=== PATIENT | female | born 1995 | race Caucasian/White ===

== ENCOUNTER → 2023-08-30 | Outpatient (CLI) | payer BC | END | disposition home or self-care (01) | LOC: LABWHC1 08:35 | PROVIDERS: ATTEND Family Medicine | DX: Z33.1 Pregnant state, incidental (principal) | CPT/HCPCS: 36415; 84702 ==

== ENCOUNTER 2023-12-10 17:04 | Emergency (ER) | payer OTHER, BC ==
--- NOTE | 2023-12-10 17:39 | ED ---
General Adult HPI - General Chief complaint: Fall Stated complaint: Fall while - 19 weeks Time Seen by Provider: 12/10/23 17:11 Source: patient, RN notes reviewed Mode of arrival: ambulatory Limitations: no limitations - History of Present Illness Initial comments: 28-year-old G4, P1 female presents to the emergency department for evaluation of fall. Patient is 19 weeks . She follows with Dr. Scales. Patient states that she slipped on ice today. She states that she fell on her bottom. She denies any other injury. Denies blood thinners. She states that she has been ambulating well. She denies vaginal bleeding, cramping. She has an appointment with her OB next week. - Related Data Allergies Allergy/AdvReac Type Severity Reaction Status Date / Time No Known Allergies Allergy Verified 12/10/23 17:10 Review of Systems ROS Statement: Those systems with pertinent positive or pertinent negative responses have been documented in the HPI. ROS Other: All systems not noted in ROS Statement are negative. Past Medical History Past Medical History: No Reported History Past Surgical History: Section Smoking Status: Never smoker General Exam Limitations: no limitations General appearance: alert, in no apparent distress Head exam: Present: atraumatic, normocephalic, normal inspection Eye exam: Present: normal appearance, PERRL, EOMI. Absent: scleral icterus, conjunctival injection, periorbital swelling ENT exam: Present: normal exam, mucous membranes moist Neck exam: Present: normal inspection, full ROM. Absent: tenderness, meningismus, lymphadenopathy Respiratory exam: Present: normal lung sounds bilaterally. Absent: respiratory distress, wheezes, rales, rhonchi, stridor Cardiovascular Exam: Present: regular rate, normal rhythm, normal heart sounds. Absent: systolic murmur, diastolic murmur, rubs, gallop, clicks GI/Abdominal exam: Present: soft, normal bowel sounds, other (Fundus palpable just below the umbilicus) Extremities exam: Present: normal inspection, full ROM, normal capillary refill. Absent: tenderness, pedal edema, joint swelling, calf tenderness Back exam: Present: normal inspection Neurological exam: Present: alert, oriented X3 Psychiatric exam: Present: normal affect, normal mood Skin exam: Present: warm, dry, intact, normal color. Absent: rash Course Vital Signs 12/10/23 12/10/23 17:07 18:49 Temperature 98.3 F 98.3 F Pulse Rate 104 H 99 Respiratory 20 18 Rate Blood Pressure 110/60 110/82 O2 Sat by Pulse 98 99 Oximetry Medical Decision Making - Medical Decision Making Was pt. sent in by a medical professional or institution (FAUSTO Medina, TECHNICAL COMMUNICATOR, urgent care, hospital, or fci...) When possible be specific @ -No Did you speak to anyone other than the patient for history (EMS, parent, family, police, friend...)? What history was obtained from this source @ -No Did you review nursing and triage notes (agree or disagree)? Why? @ -I reviewed and agree with nursing and triage notes Were old charts reviewed (outside hosp., previous admission, EMS record, old EKG, old radiological studies, urgent care reports/EKG's, fci records)? Report findings @ -No old charts were reviewed Differential Diagnosis (chest pain, altered mental status, abdominal pain women, abdominal pain men, vaginal bleeding, weakness, fever, dyspnea, syncope, headache, dizziness, GI bleed, back pain, seizure, CVA, palpatations, mental health, musculoskeletal)? @ -Not applicable EKG interpreted by me (3pts min.). @ -None X-rays interpreted by me (1pt min.). @ -None done CT interpreted by me (1pt min.). @ -None done U/S interpreted by me (1pt. min.). @ -None done What testing was considered but not performed or refused? (CT, X-rays, U/S, labs)? Why? @ -None What meds were considered but not given or refused? Why? @ -None Did you discuss the management of the patient with other professionals (professionals i.e. FAUSTO Medina, TECHNICAL COMMUNICATOR, lab, RT, psych nurse, drug abuse social worker, military lawyer, teacher, sales and service officer, case management associate)? Give summary @ -No Was smoking cessation discussed for >3mins.? @ -No Was critical care preformed (if so, how long)? @ -No Were there social determinants of health that impacted care today? How? (Homelessness, low income, unemployed, alcoholism, drug addiction, transportation, low edu. Level, literacy, decrease access to med. care, [facility], rehab)? @ -No Was there de-escalation of care discussed even if they declined (Discuss DNR or withdrawal of care, Hospice)? DNR status @ -No What co-morbidities impacted this encounter? (DM, HTN, Smoking, COPD, CAD, Cancer, CVA, ARF, Chemo, Hep., AIDS, mental health diagnosis, sleep apnea, morbid obesity)? @ -None Was patient admitted / discharged? Hospital course, mention meds given and route, prescriptions, significant lab abnormalities, going to OR and other pertinent info. @ -Discharged. patient presented to the emergency department for evaluation of fall. Patient is 19 weeks and is concerned about the baby. She reports some buttock pain as she fell on it but is able to ambulate and does not report any significant pain. She denies vaginal bleeding, cramping. heart tones were auscultated by labor and delivery nurse with rate of 160, movement detected. Advised patient to follow-up with her OB as scheduled next week. Strict return precautions discussed including development of vaginal bleeding or cramping. Patient understanding agree with plan. Patient stable at time of discharge. Case discussed with Dr. Allen. Undiagnosed new problem with uncertain prognosis? @ -No Drug Therapy requiring intensive monitoring for toxicity (Heparin, Nitro, Insulin, Cardizem)? @ -No Were any procedures done? @ -No Diagnosis/symptom? @ -Fall during Acute, or Chronic, or Acute on Chronic? @ -Acute Uncomplicated (without systemic symptoms) or Complicated (systemic symptoms)? @ -Uncomplicated Side effects of treatment? @ -No Exacerbation, Progression, or Severe Exacerbation? @ -No Poses a threat to life or bodily function? How? (Chest pain, [place], [place], pneumonia, PE, COPD, DKA, ARF, appy, cholecystitis, CVA, Diverticulitis, Homicidal, Suicidal, threat to staff... and all critical care pts) @ -No Disposition Clinical Impression: Fall, 19 weeks gestation of Disposition: HOME SELF-CARE Condition: Stable Instructions (If sedation given, give patient instructions): Fall Prevention (ED) Additional Instructions: Please follow up with Dr. Scales as scheduled. Return to the emergency department for new or worsening symptoms as discussed. Is patient prescribed a controlled substance at d/c from ED?: No Referrals: Marquis Rodriguez MD [Primary Care Provider] - 1-2 days
[2023-12-10 18:01] VITALS: TEMP 98.3
[2023-12-10 18:53] VITALS: BP 110/82; PULSE 99; RESP 18
== END 2023-12-10 18:50 | disposition home or self-care (01) ==
LOC: EC 17:04
DX: Z04.3 Encounter for examination and observation following other accident (principal)
CPT/HCPCS: 99283

== ENCOUNTER 2024-04-24 03:38 | Inpatient (IN) | payer BC, OTHER ==
[2024-04-24 04:02] LABS: Glucose,Whole Blood 99 mg/dL (70-110)
[2024-04-24] MEDS ORDERED: OXYTOCIN 10 UNIT/ML 1 ML VIAL IM PRN (04:02)
[2024-04-24] MEDS ORDERED: miSOPROStoL 200 MCG TAB PO PRN (04:02)
[2024-04-24] MEDS ORDERED: TRANEXAMIC 1,000 MG/100ML-NACL 1,000 MG in EMPTY BAG 1 BAG IV PRN (04:02)
[2024-04-24] MEDS ORDERED: CARBOPROST TROMETHAMINE 250 MCG/ML 1 ML AMP IM PRN (04:02)
[2024-04-24] MEDS ORDERED: METHYLERGONOVINE 0.2 MG/ML 1 ML AMP IM PRN (04:02)
[2024-04-24 04:12] LABS: Basophils # (A) 0.1 k/uL (0-0.2); Basophils % (A) 1 %; Eosinophils # (A) 0.2 k/uL (0-0.7); Eosinophils % (A) 2 %; HCT 42.1 % (34.0-46.0); HGB 13.5 gm/dL (11.4-16.0); Lymphocytes # (A) 2.8 k/uL (1.0-4.8); Lymphocytes % (A) 29 %; MCH 28.1 pg (25.0-35.0); MCHC 32.1 g/dL (31.0-37.0); MCV 87.4 fL (80.0-100.0); Mean Platelet Volume 8.9; Monocytes # (A) 0.6 k/uL (0-1.0); Monocytes % (A) 6 %; Neutrophils # (A) 5.7 k/uL (1.3-7.7); Neutrophils % (A) 59 %; Platelet Count 252 k/uL (150-450); RBC 4.81 m/uL (3.80-5.40); WBC 9.6 k/uL (3.8-10.6)
[2024-04-24] MEDS: CITRIC ACID-SODIUM CITRATE 15 ML CUP PO ONE (04:33)
[2024-04-24] MEDS: LACTATED RINGERS 1,000 ML BAG IV STA (04:36)
[2024-04-24] MEDS ORDERED: ONDANSETRON 4 MG/2 ML VIAL ONE (05:28)
[2024-04-24] MEDS ORDERED: fentaNYL (PF) 50 MCG/ML 2 ML AMP ONE (05:28)
[2024-04-24] MEDS ORDERED: PROPOFOL 10 MG/ML 20 ML VIAL IV ONE (05:28)
[2024-04-24] MEDS ORDERED: KETOROLAC 15 MG/ML 1 ML VIAL ONE (05:28)
[2024-04-24] MEDS ORDERED: DEXAMETHASONE SOD PHOSPHATE 4 MG/ML 1 ML VIAL ONE (05:28)
[2024-04-24] MEDS ORDERED: MORPHINE SULFATE (PF) 0.3 MG/0.3 ML SYR ONE (05:28)
[2024-04-24] MEDS ORDERED: SUCCINYLCHOLINE CHLORIDE 200 MG/10 ML VIAL IV ONE (05:28)
[2024-04-24] MEDS ORDERED: OXYTOCIN 30 UNITS/500 ML NS BAG IV ONE (05:28)
--- NOTE | 2024-04-24 06:39 | P.HPOB ---
History of Present Illness H&P Date: 04/24/24 Chief Complaint: Leaking of fluid Ms. Paredes is a 28 year old at 38 weeks and 2 days with EDC of 05/06/2024 by a 6 week US who presents to L&D with grossly ruptured membranes and in labor. She has a history of one prior section and was scheduled for a repeat with bilateral salpingectomy this coming . Her has been complicated by gestational diabetes on Metformin. The fetus is estimated in the 78%ile based on a 32 week growth ultrasound. Obstetric history: 1 full-term work-up: blood type O positive, antibody negative, rubella immune, VDRL non-reactive, HBsAg negative, HIV negative, HCV Ab negative, gonorrhea negative, chlamydia negative, 1 hour GTT 213, GBS negative Past Medical History Past Medical History: No Reported History History of Any Multi-Drug Resistant Organisms: None Reported Past Surgical History: Section Past Anesthesia/Blood Transfusion Reactions: No Reported Reaction Past Psychological History: No Psychological Hx Reported Smoking Status: Never smoker Past Drug Use History: None Reported Medications and Allergies Home Medications Medication Instructions Recorded Confirmed Type Aspirin [Adult Low Dose Aspirin EC] 81 mg PO 04/24/24 History Vit No.179/Iron/Folic 1 each PO 04/24/24 History [ Tablet] metFORMIN HCL 500 mg PO 04/24/24 History Allergies Allergy/AdvReac Type Severity Reaction Status Date / Time No Known Allergies Allergy Verified 04/24/24 03:40 Exam Vital Signs Temp Pulse Resp BP Pulse Ox 04/24/24 03:51 96.4 F L 77 16 123/72 100 04/24/24 03:39 96.4 F L 77 16 123/72 100 Intake and Output 04/23/24 04/23/24 04/24/24 14:59 22:59 06:59 Other: Weight 87.997 kg Focused physical exam is performed. This is a healthy-appearing in no apparent distress. Breathing is non-labored. Abdomen is gravid and non-tender. Extremities non-tender and non-edematous. heart tones are Category I and tocometer is graphing contractions every 4 minutes. Results Result Diagrams: 04/24/24 04:02 Assessment and Plan Assessment: 28 year old at 38 weeks and 2 days scheduled for repeat who presents with SROM Plan: Admit, NPO, initiate protocol Time with Patient: Less than 30
[2024-04-24] MEDS ORDERED: METOCLOPRAMIDE 5 MG/ML 2 ML VIAL IVP PRN (06:45)
[2024-04-24] MEDS ORDERED: NALOXONE 0.4 MG/ML 1 ML VIAL IV PRN (06:45)
[2024-04-24] MEDS ORDERED: diphenhydrAMINE 25 MG CAP PO PRN (06:45)
[2024-04-24] MEDS ORDERED: diphenhydrAMINE 50 MG CAP PO PRN (06:45)
[2024-04-24] MEDS ORDERED: ONDANSETRON 4 MG/2 ML VIAL IVP PRN (06:45)
[2024-04-24] MEDS ORDERED: ZOLPIDEM 5 MG TAB PO PRN (06:45)
[2024-04-24] MEDS ORDERED: diphenhydrAMINE 50 MG/ML 1 ML VIAL IVP PRN ×2 (06:45)
--- NOTE | 2024-04-24 06:45 | P.OP ---
Date of Procedure: 04/24/24 Preoperative Diagnosis: 1. Term IUP at 38 weeks and 2 days 2. History of prior c-esction 3. No desire for TOLAC 4. SROM Postoperative Diagnosis: Same Procedure(s) Performed: Repeat Lower Transverse Section with Bilateral Salpingectomy Implants: None Anesthesia: OLEKSANDR Surgeon: Enedina Euceda Basket Turner #1: Jana Gerard Estimated Blood Loss (ml): 610 Urine output (ml): 500 (clear yellow) Pathology: none sent Condition: stable Disposition: floor Indications for Procedure: Ms. Paredes is a 28 year old at 38 weeks and 2 days gestation who is scheduled for a repeat next week and presents with SROM. The risks, benefits, and alternatives to section were discussed with the patient including risk of bleeding, infection, damage to surrounding structures inc luding bladder/bowels/ureters, and post-operative VTE. The patient understands these risks and desires to proceed with section. Operative Findings: Mild adhesive disease in the pelvis. Colorless amniotic fluid. Viable male in cephalic presentation. Apgars 6/10. Weight 7 pounds, 7 ounces (3370 grams). Normal uterus, tubes, and ovaries. Description of Procedure: The patient was taken back to the operating room where spinal anesthesia was found to be inadequate. The patient was then placed under general anesthesia. Two grams of Ancef were given for infection prophylaxis. She was prepared and draped in the dorsal supine position with a leftward tilt. A Pfannenstiel skin incision was made with the scalpel. The incision was carried down to the fascia with a bovie. The fascia was incised and extended laterally with Jc scissors. The superior aspect of the fascia was grasped with the Garima clamps. The underlying rectus muscle was dissected off sharply with Jc scissors. In a similar fashion, the inferior aspect of the fascia was elevated with Garima clamps and the rectus muscle and pyramidalis were dissected off. Excellent hemostasis was achieved with the bovie. The rectus muscle was in the midline down to the level of the pubic symphysis. Pre-peritoneal fatty tissue was bluntly dissected to expose the peritoneum. The peritoneum was found to be free of adherent bowel and entered sharply with Jc scissors. The peritoneal incision was extended superiorly and inferiorly to the bladder reflection with good visualization of the bladder. The bladder blade was inserted and vesicouterine peritoneum was identified. Intraabdominal survey revealed scant, clear peritoneal fluid and the thinned-out lower uterine segment. The vesicouterine peritoneum was opened with scissors and the bladder flap was developed. The bladder blade was repositioned to keep the bladder out of the operative field. The lower uterine segment was incised with a scalpel. The amniotic sac was ruptured with an Allis clamp and clear fluid was noted. The uterine incision was extended bluntly with lateral and upward traction. The fetu s was in cephalic presentation. The head was elevated out of the pelvis with special attention paid to avoid using the uterine incision as a fulcrum. Gentle fundal pressure was applied once the head was brought into the incision. The infant was delivered with no difficulty and was noted to be crying spontaneously. The mouth and nose were suctioned with a bulb. The cord was clamped and cut. The was handed off to the investigative writer. IV oxytocin was initiated to facilitate uterine contractions. The placenta was delivered intact with manual massage of uterine fundus. The uterus was then exteriorized and the inside of the uterus was gently wiped with a lap sponge to assure complete removal of placental membranes. The uterine incision was closed with 0-Vicryl suture in a running locked fashion. A second imbricating layer was placed with 0-Vicryl. The ovaries and tubes were found to be normal. The fimbriated end of the right fallopian tube was then grasped, cauterized, and cut sequentially to the level of the uterine cornua using the Ligasure device. This process was repeated on the left side. The uterus and ovaries were then gently returned to the abdominal cavity. The abdomen was copiously suction irrigated. The uterine incision was reinspected and excellent hemostasis was noted. The fascial layer was closed with a 0-Vicryl suture. The subcutaneous tissue was reapproximated with 2-0 Plain Gut. The skin was closed with almita.The patient tolerated the procedure well. All the counts were correct times two. The patient was taken to the recovery room in a stable condition. A physician manager surgical was utilized for the entire procedure due to the need for tissue retraction, dissection of vital structures, prevention and management of blood loss, and reduction in overall operative and anesthesia time as is the standard of care.
[2024-04-24] MEDS: LACTATED RINGERS 1,000 ML IV SCH (07:01)
[2024-04-24] MEDS: SENNOSIDES-DOCUSATE SODIUM 1 EACH TAB PO SCH (08:18)
[2024-04-24] MEDS: ACETAMINOPHEN TAB 500 MG TAB PO SCH (08:22)
[2024-04-24] MEDS: KETOROLAC 15 MG/ML 1 ML VIAL IVP SCH (12:25)
[2024-04-24] MEDS: IBUPROFEN 600 MG TAB PO SCH (12:26)
[2024-04-25] MEDS: SIMETHICONE 80 MG CHEWABLE PO PRN (00:24)
[2024-04-25 05:35] LABS: Basophils % (A) 0 %; Eosinophils # (A) 0.1 k/uL (0-0.7); Eosinophils % (A) 1 %; HGB 11.1 gm/dL (11.4-16.0); Lymphocytes # (A) 2.5 k/uL (1.0-4.8); Lymphocytes % (A) 28 %; MCH 28.8 pg (25.0-35.0); MCHC 32.5 g/dL (31.0-37.0); MCV 88.7 fL (80.0-100.0); Mean Platelet Volume 9.2; Monocytes # (A) 0.5 k/uL (0-1.0); Monocytes % (A) 5 %; Neutrophils # (A) 5.9 k/uL (1.3-7.7); Neutrophils % (A) 65 %; Platelet Count 192 k/uL (150-450); RBC 3.84 m/uL (3.80-5.40); WBC 9.2 k/uL (3.8-10.6)
--- NOTE | 2024-04-25 07:46 | P.PN ---
Progress Note - Text Progress Note Date: 04/25/24 Patient doing well. Ambulating w/o paresthesia or weakness. Denies headache. Mild pruritis over abdomen. Pain controlled. A/P POD#1 s/p w/ spinal duramorph - doing well
--- NOTE | 2024-04-25 09:32 | P.PNOBGPC ---
Subjective - Subjective Principal diagnosis: s/p repeat Interval history: The patient is doing well this morning and had no acute events overnight. She has no complaints this morning. She reports minimal lochia, passing flatus, voiding without difficulty, ambulating, and eating/drinking without nausea or vomiting. She is formula-feeding her without difficulty. She denies chest pain, shortness of breathing, fevers, or chills overnight. She denies pain or swelling in the legs. Patient reports: Reports appetite normal, Reports voiding normally, Reports pain well controlled, Reports ambulating normally [place]: doing well Objective - Vital Signs Latest vital signs: Vital Signs Temp Pulse Resp BP Pulse Ox 04/25/24 08:00 98.1 F 78 16 112/78 98 04/25/24 04:00 98.2 F 78 16 98/59 97 04/25/24 00:00 98.1 F 77 15 94/60 97 04/24/24 19:45 98.1 F 81 19 105/71 97 04/24/24 16:28 98.0 F 75 16 104/65 97 04/24/24 12:00 97.7 F 89 16 100/65 96 Intake and Output 04/24/24 04/25/24 04/25/24 22:59 06:59 14:59 Intake Total 1220 Output Total 1600 Balance -380 Intake: IV 500 Oral 720 Output: Urine 1600 Other: Voiding Method Toilet Toilet # Voids 2 1 2 - Exam Extremities: Present: normal Abdomen: Present: normal appearance, soft Incision: Present: normal, dry, intact, other (almita in place) Uterus: Present: normal, firm - Labs Labs: Abnormal Lab Results - Last 24 Hours (Table) 04/25/24 Range/Units 05:21 Hgb 11.1 L (11.4-16.0) gm/dL Assessment and Plan Assessment: 28 year old now POD#1 s/p repeat section at 38 weeks 2/ SROM Plan: 1. postoperative. patient meeting all postoperative milestones appropriately. continue to monitor. 2. viable male infant. doing well, will plan for circumcision tomorrow. Dispo: Anticipate discharge home tomorrow.
[2024-04-26 08:24] VITALS: BP 117/75; PULSE 90; RESP 16; TEMP 98.1
--- NOTE | 2024-04-26 11:45 | P.DS ---
Providers Date of admission: 04/24/24 03:49 Expected date of discharge: 04/26/24 Attending physician: Yue Scales Primary care physician: Stated None - Discharge Diagnosis(es) (1) Term Current Visit: Yes Status: Acute (2) SROM (spontaneous rupture of membranes) Current Visit: Yes Status: Acute (3) H/O section Current Visit: Yes Status: Acute (4) S/P section Current Visit: Yes Status: Acute Hospital Course: This is a 28 yo that presented to labor and delivery on 04/24 with complaints of SROM that am. She is has a history of a section and desires repeat. she is done with childbearing and desires bilateral salpingecotmy. She did have routine care complicated by a diagnosis of GDM controlled with po metformin. For full details on this patient, please see her dictated history and physical. She was admitted to labor and delivery and taken back to the OR for RCS, and bilateral salpingectomy. For full details see the dicated operative report. She delivered a viable female infant 7-7. Her post care has been uncomplicated and on this post operative day number 2 she is feeling well. She is ambulating and voiding without difficulty, lochia is minimal, she is bottlefeeding. she is requesting discharge home this afternoon. Patient Condition at Discharge: Good Plan - Discharge Summary New Discharge Prescriptions: No Action Vit No.179/Iron/Folic [ Tablet] 1 each PO metFORMIN HCL 500 mg PO Aspirin [Adult Low Dose Aspirin EC] 81 mg PO Discharge Medication List Aspirin [Adult Low Dose Aspirin EC] 81 mg PO 04/24/24 [History] Vit No.179/Iron/Folic [ Tablet] 1 each PO 04/24/24 [History] metFORMIN HCL 500 mg PO 04/24/24 [History] Follow up Appointment(s)/Referral(s): Yue Scales DO [Doctor of Osteopathic Medicine] - 2 Weeks Patient Instructions/Handouts: (DC), (GEN) Activity/Diet/Wound Care/Special Instructions: no tub baths or intercourse until 6 weeks post , OTC motrin/ibuprofen 600mg or 3 tabs every 6 hours as needed for pain. breastmilk may come in, in the next few day slight low grade fever may be noted with engorgement. FU appointment in 2 weeks for routine PO check, should she have concerns prior to this appointment she is to call the office. Discharge Disposition: HOME SELF-CARE
== END 2024-04-26 15:30 | disposition home or self-care (01) | DRG 785 ==
LOC: FBPOP 03:38 → 4FBP 03:49
PROVIDERS: ADMIT Obstetrics & Gynecology; ATTEND Obstetrics & Gynecology Obstetrics
PROC: 0UT70ZZ Resection of Bilateral Fallopian Tubes, Open Approach (ICD-10-PCS; 2024-04-24)
PROC: 10D00Z1 Extraction of Products of Conception, Low, Open Approach (ICD-10-PCS; principal; 2024-04-24 05:00)
DX: O34.211 Maternal care for low transverse scar from previous cesarean delivery (principal); O24.425 Gestational diabetes mellitus in childbirth, controlled by oral hypoglycemic drugs; O42.92 Full-term premature rupture of membranes, unspecified as to length of time between rupture and onset of labor; O90.9 Complication of the puerperium, unspecified; L29.9 Pruritus, unspecified; Z37.0 Single live birth; Z3A.38 38 weeks gestation of pregnancy; Z79.82 Long term (current) use of aspirin; Z30.2 Encounter for sterilization
CPT/HCPCS: 59025; 84112; 85025; 86850; 86900; 86901; 88302; 99213

== ENCOUNTER 2024-10-10 06:42 | Emergency (ER) | payer BC, OTHER ==
[2024-10-10 06:51] VITALS: RESP 18
--- NOTE | 2024-10-10 07:27 | ED ---
General Adult HPI - General Chief complaint: ENT Stated complaint: Earache Time Seen by Provider: 10/10/24 07:01 Source: patient, RN notes reviewed Mode of arrival: ambulatory Limitations: no limitations - History of Present Illness Initial comments: Patient is a 28-year-old female presenting to the emergency department with concern for left ear ache. Patient has had upper respiratory symptoms and congestion for a couple weeks. Patient has had some mild left ear fullness. Discomfort started becoming severe around 1 AM. Patient still has discomfort. Patient also has mild congestion and mild cough however those are getting better. No fever. - Related Data Home Medications Medication Instructions Recorded Confirmed Aspirin [Adult Low Dose Aspirin EC] 81 mg PO 04/24/24 Vit No.179/Iron/Folic 1 each PO 04/24/24 [ Tablet] metFORMIN HCL 500 mg PO 04/24/24 Previous Rx's Medication Instructions Recorded Amoxicillin 500 mg PO Q8H #30 capsule 10/10/24 Allergies Allergy/AdvReac Type Severity Reaction Status Date / Time No Known Allergies Allergy Verified 10/10/24 06:51 Review of Systems ROS Statement: Those systems with pertinent positive or pertinent negative responses have been documented in the HPI. ROS Other: All systems not noted in ROS Statement are negative. Constitutional: Denies: fever ENT: Reports: ear pain, congestion Respiratory: Reports: as per HPI, cough Cardiovascular: Denies: chest pain Endocrine: Denies: fatigue Gastrointestinal: Denies: abdominal pain Past Medical History Past Medical History: No Reported History History of Any Multi-Drug Resistant Organisms: None Reported Past Surgical History: Section Past Anesthesia/Blood Transfusion Reactions: No Reported Reaction Past Psychological History: No Psychological Hx Reported Smoking Status: Never smoker Past Alcohol Use History: None Reported Past Drug Use History: None Reported General Exam Limitations: no limitations General appearance: alert, in no apparent distress Head exam: Present: normocephalic Eye exam: Present: normal appearance, PERRL, EOMI ENT exam: Present: normal oropharynx, other (Left TM bulging and erythema) Respiratory exam: Present: normal lung sounds bilaterally Cardiovascular Exam: Present: regular rate, normal rhythm GI/Abdominal exam: Present: soft. Absent: tenderness Extremities exam: Present: normal inspection Neurological exam: Present: alert Psychiatric exam: Present: normal affect, normal mood Skin exam: Present: normal color Course Vital Signs 10/10/24 06:49 Temperature 98.3 F Pulse Rate 88 Respiratory 18 Rate Blood Pressure 117/77 O2 Sat by Pulse 96 Oximetry Medical Decision Making - Medical Decision Making Was pt. sent in by a medical professional or institution ([facility], [employer], urgent care, hospital, or half-way...) When possible be specific @ -No Did you speak to anyone other than the patient for history (EMS, parent, family, police, friend...)? What history was obtained from this source @ -No Did you review nursing and triage notes (agree or disagree)? Why? @ -I reviewed and agree with nursing and triage notes Were old charts reviewed (outside hosp., previous admission, EMS record, old EKG, old radiological studies, urgent care reports/EKG's, half-way records)? Report findings @ -No old charts were reviewed Differential Diagnosis (chest pain, altered mental status, abdominal pain women, abdominal pain men, vaginal bleeding, weakness, fever, dyspnea, syncope, headache, dizziness, GI bleed, back pain, seizure, CVA, palpatations, mental health, musculoskeletal)? @ -Differential Fever: Pneumonia, viral URI, endocarditis, myocarditis, pericarditis, otitis, sinusitis, peritonsillar Abscess, retropharyngeal Abscess, epiglottitis, peritonitis, appendicitis, Khadijah cystitis, diverticulitis, hepatitis, colitis, UTI, PID, TOA, pyelonephritis, prostatitis, epididymitis, meningitis, encephalitis, pulmonary embolism, CVA, thyroid storm, pancreatitis, adrenal crisis, cavernous sinus thrombosis, this is not meant to be an all-inclusive list. EKG interpreted by me (3pts min.). @ -As above X-rays interpreted by me (1pt min.). @ -None done CT interpreted by me (1pt min.). @ -None done U/S interpreted by me (1pt. min.). @ -None done What testing was considered but not performed or refused? (CT, X-rays, U/S, labs)? Why? @ -None What meds were considered but not given or refused? Why? @ -None Did you discuss the management of the patient with other professionals (professionals i.e. [facility], [employer], lab, RT, psych nurse, social contact worker, soil analyst, teacher, fundraising officer, machine adjuster leader case trim)? Give summary @ -No Was smoking cessation discussed for >3mins.? @ -No Was critical care preformed (if so, how long)? @ -No Were there social determinants of health that impacted care today? How? (Homelessness, low income, unemployed, alcoholism, drug addiction, transportation, low edu. Level, literacy, decrease access to med. care, shelter, rehab)? @ -No Was there de-escalation of care discussed even if they declined (Discuss DNR or withdrawal of care, Hospice)? DNR status @ -No What co-morbidities impacted this encounter? (DM, HTN, Smoking, COPD, CAD, Cancer, CVA, ARF, Chemo, Hep., AIDS, mental health diagnosis, sleep apnea, morbid obesity)? @ -None Was patient admitted / discharged? Hospital course, mention meds given and route, prescriptions, significant lab abnormalities, going to OR and other pertinent info. @ -Patient presents with recent upper respiratory infection with left ear discomfort. Ear appears infected. Patient will be discharged with antibiotics. Patient updated. Undiagnosed new problem with uncertain prognosis? @ -No Drug Therapy requiring intensive monitoring for toxicity (Heparin, Nitro, Insulin, Cardizem)? @ -No Were any procedures done? @ -No Diagnosis/symptom? @ -Left otitis media Acute, or Chronic, or Acute on Chronic? @ -Acute Uncomplicated (without systemic symptoms) or Complicated (systemic symptoms)? @ -Default Side effects of treatment? @ -No Exacerbation, Progression, or Severe Exacerbation? @ -No Poses a threat to life or bodily function? How? (Chest pain, [place], [place], pneumonia, PE, COPD, DKA, ARF, appy, cholecystitis, CVA, Diverticulitis, Homicidal, Suicidal, threat to staff... and all critical care pts) @ -No Disposition Clinical Impression: Otitis media Disposition: HOME SELF-CARE Condition: Stable Instructions (If sedation given, give patient instructions): Earache (ED) Additional Instructions: Prescription has been sent to pharmacy. Please follow-up with primary care physician in the next couple of days for recheck. [id number] Tylenol or Motrin as needed. Return for increased pain, loss of hearing, bleeding, fevers, worsening symptoms or other concerns Prescriptions: Amoxicillin 500 mg PO Q8H #30 capsule Is patient prescribed a controlled substance at d/c from ED?: No Referrals: Ming Haley MD [STAFF PHYSICIAN] - 1-2 days Forms: Area PCPs Time of Disposition: 07:27
[2024-10-10] MEDS: IBUPROFEN 600 MG TAB PO STA (07:30)
[2024-10-10] MEDS: AMOXICILLIN 500MG STARTER PACK 3 CAP BTL PO STA (07:30)
[2024-10-10 07:42] VITALS: BP 120/75; PULSE 82; TEMP 98.4
== END 2024-10-10 07:38 | disposition home or self-care (01) ==
LOC: EC 06:42
DX: H66.92 Otitis media, unspecified, left ear (principal)
CPT/HCPCS: 99282